=== PATIENT | male | born 1980 | race Caucasian/White ===

== ENCOUNTER 2018-01-02 08:00 | Outpatient (CLI) | payer BC ==
--- NOTE | 2018-01-02 10:59 | MRI ---
MAGNETIC RESONANCE ANGIOGRAM HEAD NONCONTRAST: (MRA) Date: 01/02/18 HISTORY: 37-year-old male with G43.019, migraine without aura, intractable, without status migrainosus. TECHNIQUE: 3D [id number] MRA acquired in multiple axial slabs through the [place]. Source images an d 3D MIP reconstructions evaluated. FINDINGS: There is a tiny, approximately 1 or 2 mm, apparent focal posterior protrusion from the left carotid t erminus (axial source images 73 and 74 of 149, series 2). This is too small to be seen on the 3D MIP reconstructions. There is a patent anterior communicating artery. No posterior communicating artery i s visualized. Anterior and posterior circulation arteries are of normal caliber. No high grade focal stenosis. IMPRESSION: 1. Questionable tiny, 1 or 2 mm, aneurysm protruding posteriorly from the left carotid terminus. 2. No other potential abnormality identified. 3. Consider further evaluation with CT angiogram of the head with contrast. POS: ANDREA
== END 2018-01-02 08:01 | disposition home or self-care (01) ==
LOC: MRI 08:00
PROVIDERS: ATTEND Psychiatry & Neurology Neurology
DX: G43.019 Migraine without aura, intractable, without status migrainosus (principal)
CPT/HCPCS: 70544

== ENCOUNTER 2018-01-16 07:24 | Outpatient (CLI) | payer BC ==
--- NOTE | 2018-01-16 10:37 | CT ---
EEK OF [place] CTA: Date: 01/16/18 COMPARISON: Previous MRA from 01/02/18. FINDINGS: Contrast enhanced [place] CTA is performed. 2D and 3D reconstructed images performed on an [employer] 3D workstation. CTA images demonstrate the distal internal carotid arteries to be unremarkable. The right and left ve rtebral, as well as the basilar artery, are unremarkable. The GORGE, MCA, and FURNITURE REMOVALIST vessels are patent. No evidence of aneurysms or vascular malformations seen. IMPRESSION: Normal contrast enhanced CTA brain. POS: ANDREA
== END 2018-01-16 07:25 | disposition home or self-care (01) ==
LOC: SCSCT 07:24
PROVIDERS: ATTEND Psychiatry & Neurology Neurology
DX: G43.019 Migraine without aura, intractable, without status migrainosus (principal)
CPT/HCPCS: 70496